=== PATIENT | female | born 1970 | race Caucasian/White ===

== ENCOUNTER 2020-04-26 09:29 | Outpatient (CLI) | payer BC, SELFPAY ==
--- NOTE | ~2020-04-26 | MM_ITS ---
EXAMINATION: MM screening [facility] BI w yessica HISTORY: Screening mammogram TECHNIQUE: Craniocaudal and mediolateral oblique 3-D tomosynthesis images were obtained and synthetic 2-D images were generated. CAD analysis was submitted and interpreted. COMPARISON: 03/02/2019, 02/24/2018, 09/09/2016 BREAST PARENCHYMAL COMPOSITION: There are scattered areas of fibroglandular density. FINDINGS: Masses of the central right breast demonstrates slight decrease in size, consistent with be nign findings. There is no evidence of suspicious mass, calcification, or architectural distortion to suggest malignancy in either breast. There has been no suspicious interval change. IMPRESSION: 1. No mammographic evidence of malignancy. 2. Recommend routine screening mammography in one year. BI-RADS Category 2: Benign finding(s). Reviewed, dictated and finalized at location A.
== END 2020-04-26 09:30 | disposition home or self-care (01) ==
LOC: ANHIMG 09:32
PROVIDERS: PCP Family Medicine Adolescent Medicine; Visit Provider Obstetrics & Gynecology
DX: Z12.31 Encounter for screening mammogram for malignant neoplasm of breast (principal)
CPT/HCPCS: 77063; 77067

== ENCOUNTER 2021-07-11 09:57 | Outpatient (CLI) | payer BC, SELFPAY ==
--- NOTE | ~2021-07-11 | MM_ITS ---
EXAMINATION: MM screening [facility] BI w yessica HISTORY: Screening TECHNIQUE: Craniocaudal and mediolateral oblique 3-D tomosynthesis images were obtained and synthetic 2-D images were generated. CAD analysis was submitted and interpreted. COMPARISON: No prior mammogram is available for comparison at this institution. BREAST PARENCHYMAL COMPOSITION: The breasts are heterogeneously dense, which may obscure small masses . FINDINGS: There are developing asymmetries/masses in the central aspect of the right breast, middle t hird. There is no evidence of suspicious mass, calcification, or architectural distortion to suggest malignancy in either breast. There has been no suspicious interval change. IMPRESSION: 1. Developing right breast asymmetries/masses. 2. Additional mammographic views and possible breast ultrasound are recommended. BI-RADS Category 0: Incomplete: Needs additional imaging evaluation. Reviewed, dictated and finalized at location A. IMPRESSION: 1. Developing right breast asymmetries/masses. 2. Additional mammographic views and possible breast ultrasound are recommended . BI-RADS Category 0: Incomplete: Needs additional imaging evaluation.
== END 2021-07-11 09:58 | disposition home or self-care (01) ==
LOC: ANHIMG 09:59
PROVIDERS: PCP Family Medicine Adolescent Medicine; Visit Provider Obstetrics & Gynecology
DX: Z12.31 Encounter for screening mammogram for malignant neoplasm of breast (principal); R92.8 Other abnormal and inconclusive findings on diagnostic imaging of breast
CPT/HCPCS: 77063; 77067

== ENCOUNTER 2021-08-01 12:44 | Outpatient (CLI) | payer BC, SELFPAY ==
--- NOTE | ~2021-08-01 | MMUS_ITS ---
EXAMINATION: MM diagnostic [facility] RT w yessica, US breast RT complete HISTORY: Developing asymmetry/mass in central right breast, middle third, reported on 07/11/2021 [facility] mammogram TECHNIQUE: Additional 3-D tomosynthesis images of the right breast were performed and synthetic 2-D i mages were generated. CAD analysis was submitted and interpreted. High resolution complete right thierry st ultrasound including all 4 quadrants and subareolar area was performed. COMPARISON: 07/11/2021 bilateral digital screening mammogram FINDINGS: MAMMOGRAPHIC FINDINGS: An approximately 1 cm irregular asymmetric mass is noted at mid depth of the upper inner quadrant of the right breast. Sonographic correlation was performed. 2. Biopsy markers are noted; history of prior benign right breast biopsies. There are scattered benign calcifications. ULTRASOUND: 1:00 3 cm from nipple: A nonspecific irregular hypoechoic up to approximately mm area is noted. Ultra sound-guided aspiration attempt is recommended, with biopsy if this does not resolve with aspiration No other significant sonographic finding of the right breast is noted. IMPRESSION: 1. Irregular hypoechoic nonspecific lesion at 1:00 3 cm from nipple 2. Ultrasound-guided aspiration attempt is recommended, with biopsy to follow immediately if this veliz s not successfully resolve with aspiration BI-RADS category 4, suspicious findings. Dr. Stewart telephoned Dr. Mack's office and gave Carri the report and ultrasound guided aspiration and if necessary biopsy report on 08/01/2021 at 1505 hours. Reviewed, dictated and finalized at location A. IMPRESSION: 1. Irregular hypoechoic nonspecific lesion at 1:00 3 cm from nipple 2. Ultrasound-guided aspiration attempt is recommended, with biopsy to follow i mmediately if this does not successfully resolve with aspiration BI-RADS category 4, suspicious findings. Dr. Stewart telephoned Dr. Mack's office and gave Carri the report and ultras ound guided aspiration and if necessary biopsy report on 08/01/2021 at 1505 [place] [address].
== END 2021-08-01 12:45 | disposition home or self-care (01) ==
LOC: ANHIMG 12:45
PROVIDERS: PCP Family Medicine Adolescent Medicine; Visit Provider Obstetrics & Gynecology
DX: R92.8 Other abnormal and inconclusive findings on diagnostic imaging of breast (principal)
CPT/HCPCS: 76641; 77061; 77065; G0279

== ENCOUNTER 2022-06-29 14:11 | Emergency (ER) | payer BC, SELFPAY ==
[2022-06-29] VITALS (12 sets, daily range): BP systolic 110–145; BP diastolic 62–87; PULSE 77–99; RESP 9–16; TEMP 36.9; O2SAT 95–99
--- NOTE | ~2022-06-29 | XR_ITS ---
EXAMINATION: XR chest 2V Exam Date/Time: 06/29/2022 14:30 CDT HISTORY: CP/HEAVINESS. NEW MED STARTED 1 WK AGO,NOT SURE IF RELATED Comparison: 01/21/2019. RESULT: Lines, tubes, and devices: None. Lungs and pleura: Diffuse reticulonodular pattern, somewhat decreased since the prior study. Cardiomediastinal silhouette: Stable. Other: No acute osseous or upper abdominal finding. IMPRESSION: Pulmonary opacities may represent bronchiolitis, as can be seen with atypical infection, asthma, aspi ration, and small airways disease. Reviewed, dictated and finalized at location K. IMPRESSION: Pulmonary opacities may represent bronchiolitis, as can be seen with atypical i nfection, asthma, aspiration, and small airways disease.
--- NOTE | 2022-06-29 14:12 | ECG_ITS ---
Measurements Intervals [place] Rate: 77 P: 22 CA: 165 QRS: 60 QRSD: 90 T: 11 QT: 385 QTc: 436 Interpretive Statements SINUS RHYTHM DELAYED PRECORDIAL R/S TRANSITION LOW QRS VOLTAGE IN PRECORDIAL LEADS BORDERLINE T WAVE ABNORMALITY- INFERIOR LEADS BASELINE ARTIFACT- V6 BORDERLINE ECG NO PREVIOUS ECG AVAILABLE FOR COMPARISON Electronically Signed On 06-29-2022 21:45:26 CDT by Phoenix Holguin D.O.
--- NOTE | 2022-06-29 14:19 | ED.CHESTPAIN ---
HPI - Chest Pain General Chief Complaint: Chest Pain Stated Complaint: chest pain, heaviness Time Seen by Provider: 06/29/22 14:19 History of Present Illness HPI narrative: Patient is a 51-year-old female with a history of rheumatoid arthritis, fibromyalgia, hypothyroidism, GERD presenting with chest pain. Patient states that she recently started low-dose naltrexone for her RA. Since this time, she has had intermittent chest pain and heaviness. States that it feels heavy around at the bottom of her rib cage. Denies shortness of breath or palpitations. Reports some lightheadedness whenever she stands up too quickly. She denies leg swelling, fevers, cough, abdominal, nausea or vomiting, diarrhea, dysuria. Patient states that her boyfriend was recently diagnosed with bladder cancer and she has been feeling very stressed from this as well. Related Data Home Medications Medication Instructions Recorded Confirmed folic acid 1 mg tablet 1 mg PO DAILY 01/22/22 05/13/22 omeprazole 40 mg capsule,delayed 40 mg PO DAILY 01/22/22 05/13/22 release methotrexate (PF) 10 mg/0.4 mL 10 mg subcut WEEKLY 01/23/22 05/13/22 subcutaneous syringe prednisone 5 mg tablet 5 mg PO DAILY 01/23/22 05/13/22 Allergies Allergy/AdvReac Type Severity Reaction Status Date / Time aspirin Allergy Unknown unknown Verified 06/29/22 15:08 Penicillins Allergy Unknown Unknown Verified 06/29/22 15:08 Sulfa (Sulfonamide Allergy Unknown Rash Verified 06/29/22 15:08 Antibiotics) Review of Systems Review of Systems: All systems reviewed & are unremarkable except as noted in HPI and below PMFSH Surgical History Surgical History History of section History of endometrial ablation History of tonsillectomy Family History Family History Father Hypertension Diabetes mellitus Thyroid cancer Depression Grandparent Cerebrovascular accident Other Family history of allergic disorder Social History Social History Smoking status: Never smoker Second hand tobacco smoke exposure: No Alcohol intake: current Alcohol use details: Rarely Substance use: never Substance use type: does not use Gender identity (if verbalized by the patient): Female Sexual Orientation (if Verbalized by the Patient): Straight or Heterosexual Spiritual care concerns: No Agree to blood products: Yes Exam Narrative: GENERAL: Well-appearing, well-nourished, and in no acute distress. HEAD: Normocephalic, atraumatic. EYES: PERRLA and EOMI. ENT: Nares clear, no rhinorrhea or epistaxis. Mucous membranes moist. NECK: Supple. CHEST: Clear to auscultation. No respiratory distress. HEART: Regular rate and rhythm. No murmur heard. Normal peripheral pulses. ABDOMEN: Soft, nontender, nondistended, normal active bowel sounds. EXTREMITIES: Normal range of motion. No edema. SKIN: Warm, dry, no rash. NEURO: No focal deficits. Alert and oriented x3. PSYCH: Normal mood and affect. Course Vital Signs Vital signs: Vital Signs Temperature 98.5 F 06/29/22 14:14 Pulse Rate 99 06/29/22 14:14 Respiratory Rate 16 06/29/22 14:14 Blood Pressure 145/87 H 06/29/22 14:14 Pulse Oximetry 99 06/29/22 14:14 Oxygen Delivery Room Air 06/29/22 14:14 Temperature 98.5 F 06/29/22 14:14 Pulse Rate 79 06/29/22 18:20 Respiratory Rate 16 06/29/22 18:20 Blood Pressure 120/79 06/29/22 18:20 Pulse Oximetry 95 06/29/22 18:20 Oxygen Delivery Room Air 06/29/22 15:05 MDM - Chest Pain MDM Narrative Medical decision making narrative: Patient is a 51-year-old female with history as above presenting with 1 week of intermittent chest pain. Vitals within normal limits. Patient is well-appearing and in no acute distress. Exam is remarkable for the above. EKG per my int
[2022-06-29 14:51] LABS: Basophils Absolute Auto 0.1 K/mm3 (0.0-0.1); Basophils Percent Auto 0.5 % (0.2-1.2); Eosinophils Percent Auto 0.4 % (0-4.4); Hematocrit 36.8 % (37.0-47.0); Hemoglobin 12.4 g/dL (12.0-15.0); Immature Granulocyte Absolute 0.03 K/mm3 (0.00-0.031); Immature Granulocyte Percent A 0.3 % (0-0.5); Lymphocytes Absolute Auto 3.22 K/mm3 (0.9-3.2); Lymphocytes Percent Auto 29.2 % (18.3-44.2); Mean Corpuscular HGB Conc 33.7 g/dl (32-36); Mean Corpuscular Hemoglobin 32.5 pg (26-34); Mean Corpuscular Volume 96.3 fl (80-100); Mean Platelet Volume 9.5 fl (7.4-10.4); Monocytes Absolute Auto 0.9 K/mm3 (0.1-0.6); Monocytes Percent Auto 8.4 % (2.6-8.5); Neutrophils Absolute Auto 6.8 K/mm3 (1.3-6.7); Neutrophils Percent Auto 61.2 % (45.5-73.1); Platelet Count Result 322 k/mm3 (150-375); Red Blood Count 3.82 M/mm3 (4.2-5.4); Red Cell Distribution Width 13.5 % (11.5-14.5)
[2022-06-29 15:01] LABS: INR 0.9
[2022-06-29 15:02] LABS: Partial Thromboplastin Time 24.5 SECONDS (22.3-36.8)
[2022-06-29 15:03] LABS: Alanine Aminotransferase 30 U/L (6-35); Albumin Level 4.5 g/dL (3.5-5.1); Alkaline Phosphatase 51 U/L (38-126); Anion Gap 11 mmol/L (8-16); Aspartate Amino Transferase 25 U/L (14-36); Bilirubin,Total 0.2 mg/dL (0.2-1.3); Blood Urea Nitrogen 16 mg/dL (7-17); Calcium 8.7 mg/dL (8.4-10.2); Carbon Dioxide 25 mmol/L (22-30); Chloride 102 mmol/L (98-107); Estimated CRCL calculation 104 ml/min; Estimated Glomerular Filt Rate > 60; Glucose 134 mg/dL (65-110); Lipase 91 U/L (23-300); Potassium 3.3 mmol/L (3.4-5.0); Sodium 138 mmol/L (137-145)
[2022-06-29 15:14] LABS: Troponin I < 0.012 ng/mL (0.000-0.034)
[2022-06-29] MEDS: POTASSIUM CHLORIDE 20 MEQ TABLET 40 MEQ PO (17:40)
[2022-06-29 17:49] LABS: Troponin I < 0.012 ng/mL (0.000-0.034)
== END 2022-06-29 18:22 | disposition home or self-care (01) ==
PROVIDERS: Emergency Provider Emergency Medicine; PCP Family Medicine Adolescent Medicine
DX: R07.89 Other chest pain (principal); M06.9 Rheumatoid arthritis, unspecified; M79.7 Fibromyalgia; E03.9 Hypothyroidism, unspecified; K21.9 Gastro-esophageal reflux disease without esophagitis; R94.31 Abnormal electrocardiogram [ECG] [EKG]
CPT/HCPCS: 36415; 71046; 80053; 83690; 84484; 85025; 85610; 85730; 93005; 99284; A9270

== ENCOUNTER 2022-07-12 15:30 | Emergency (ER) | payer BC, SELFPAY ==
--- NOTE | ~2022-07-12 | XR_ITS ---
EXAMINATION: XR chest 2V Exam Date/Time: 07/12/2022 17:30 CDT HISTORY: chest/lower rib pain Comparison: 06/29/2022. RESULT: Lines, tubes, and devices: None. Lungs and pleura: Stable reticulonodular opacities. Cardiomediastinal silhouette: Stable. Other: No acute osseous or upper abdominal finding. IMPRESSION: Unchanged chronic pulmonary opacities likely representing bronchiolitis. Reviewed, dictated and finalized at location K.
--- NOTE | ~2022-07-12 | CT_ITS ---
EXAMINATION: CT abdomen pelvis w con DATE: 07/12/2022 19:37 INDICATION: epigastruc/RUQ pain, lower chest wall pain TECHNIQUE: Computed tomography (CT) of the abdomen and pelvis was performed with 100 mL Omnipaque-350 intravenous contrast. Automated exposure control and iterative reconstruction technique were employe d. The dose-length product was 1373.41 mGy-cm. COMPARISON: None. FINDINGS: Lower thorax: Unremarkable Liver: Fatty infiltrated. Enlarged. Subcentimeter right lobe hypodensity, too small to characterize. Biliary/Gallbladder: Gallbladder is normal. No bile duct dilation. Pancreas: No mass or duct dilation. Spleen: Normal. Adrenals:No mass. Kidneys: Left lower pole hypodensity, too small to characterize. No suspicious mass. No hydronephrosi s. GI tract: No small or large bowel dilation. Normal appendix. Mesentery/Peritoneum: No ascites, mass, or free air. Retroperitoneum: No mass. Pelvis: Serpiginous, fluid-filled structures in the bilateral adnexa. Multiple small simple bilateral ovarian cysts and/or follicles. Remaining pelvic are within normal limits. Soft Tissues: Soft tissues and body wall unremarkable. Bones: No acute osseous finding. IMPRESSION: Hepatomegaly. Steatosis. Bilateral hydrosalpinx. Reviewed, dictated and finalized at location K.
[2022-07-12 15:34] VITALS: BP 142/91; PULSE 89; RESP 14; TEMP 36.7; O2SAT 98
--- NOTE | 2022-07-12 16:56 | ECG_ITS ---
Measurements Intervals [place] Rate: 65 P: 39 IA: 150 QRS: 5 QRSD: 100 T: 44 QT: 404 QTc: 422 Interpretive Statements SINUS RHYTHM LOW QRS VOLTAGE IN PRECORDIAL LEADS NO SIGNIFICANT CHANGES Electronically Signed On 07-13-2022 17:38:21 CDT by Felicitas Darnell M.D.
--- NOTE | 2022-07-12 16:56 | ED.GENADULT ---
HPI - General Adult General Chief complaint: Unspecified <LONA Bowers Last Filed: 07/12/22 21:18> Stated complaint: Epigastric pain, that radiates <LONA Bowers Last Filed: 07/12/22 21:18> Time Seen by Provider: 07/12/22 16:54 <LONA Bowers Last Filed: 07/12/22 21:18> Source: patient and old records reviewed <LONA Bowers Last Filed: 07/12/22 21:18> Mode of arrival: ambulatory <LONA Bowers Filed: 07/12/22 21:18> Limitations: no limitations <LONA Bowers Filed: 07/12/22 21:18> History of Present Illness HPI narrative: Patient is a 51 y/o female, with a PMHx of RA/fibromyalgia, who presents to the ED with c/o lower chest, upper abdominal pain. Patient reports she was previously seen in the ED 2 weeks ago for chest pain at which point she had a negative work-up. She has had persistent pain in her lower chest, along her ribs, since then. She states the pain intermittently radiates throughout her lower abdomen and up to her upper chest. She has been taking ibuprofen and Tylenol intermittently without relief. Her shade maker has previously put her on a Medrol Dosepak but she denies relief with this either. Patient reports difficulty taking a deep breath, feeling as though her chest is restricted, but denies pain with taking deep breath or shortness of breath. Denies any recent cough or cold symptoms. Occasional nausea, but denies vomiting, diarrhea, constipation. <LONA Bowers Last Filed: 07/12/22 21:18> Related Data Home medications: Home Medications Medication Instructions Recorded Confirmed folic acid 1 mg tablet 1 mg PO DAILY 01/22/22 05/13/22 omeprazole 40 mg capsule,delayed 40 mg PO DAILY 01/22/22 05/13/22 release methotrexate (PF) 10 mg/0.4 mL 10 mg subcut WEEKLY 01/23/22 05/13/22 subcutaneous syringe prednisone 5 mg tablet 5 mg PO DAILY 01/23/22 05/13/22 <Kathrin Starkey PA-C - Last Filed: 07/12/22 21:18> Allergies/adverse reactions: Allergies Allergy/AdvReac Type Severity Reaction Status Date / Time danni moreno Allergy Intermediate Itching Verified 07/12/22 15:56 benzyl alcohol Allergy Intermediate Itching Verified 07/12/22 15:56 aspirin Allergy Unknown unknown Verified 07/12/22 15:56 Penicillins Allergy Unknown Unknown Verified 07/12/22 15:56 Sulfa (Sulfonamide Allergy Unknown Rash Verified 07/12/22 15:56 Antibiotics) <Kathrin Starkey PA-C - Last Filed: 07/12/22 21:18> Review of Systems Review of Systems: CONSTITUTIONAL: Denies fever, chills, or sweats. ENT: Denies rhinorrhea, congestion, sore throat. CARDIOVASCULAR: Reports lower chest wall/rib pain. Denies palpitations, or edema. RESPIRATORY: Reports difficulty taking deep breath. Denies pain with deep breath, cough, or dyspnea. GASTROINTESTINAL: Reports nausea. Denies abdominal pain, vomiting, constipation, or diarrhea. MUSCULOSKELETAL: Denies back pain, joint pain, or myalgia. <Kathrin Starkey PA-C - Last Filed: 07/12/22 21:18> [facility] Past Medical History Medical History: Medical History Abnormal Pap smear of cervix 04/07/16 ascus neg hpv Dizziness Fibromyalgia Infertility adopted girl Left breast mass Parathyroid disease Viral meningitis (~05/27/18) <Kathrin Starkey PA-C - Last Filed: 07/12/22 21:18> Surgical History Surgical History: Surgical History H/O right breast biopsy (09/03/21) right breast core biopsy Benign History of breast biopsy 06/12/12 right breast--benign History of section 06/12/03 primary c/s--41 wks, arrest of dilation, occiput posterior position, lt paratubal cyst History of dilation and curettage 200602/15/15 hscope d&c--menometrorrhagia/dysmenorrhea History of endomet
[2022-07-12 17:52] LABS: Alanine Aminotransferase 28 U/L (6-35); Albumin Level 4.4 g/dL (3.5-5.1); Alkaline Phosphatase 48 U/L (38-126); Anion Gap 8 mmol/L (8-16); Aspartate Amino Transferase 28 U/L (14-36); Bilirubin,Total 0.4 mg/dL (0.2-1.3); Blood Urea Nitrogen 14 mg/dL (7-17); Calcium 8.4 mg/dL (8.4-10.2); Carbon Dioxide 28 mmol/L (22-30); Chloride 100 mmol/L (98-107); Estimated CRCL calculation 92 ml/min; Estimated Glomerular Filt Rate > 60; Glucose 97 mg/dL (65-110); Lipase 121 U/L (23-300); Potassium 3.5 mmol/L (3.4-5.0); Sodium 136 mmol/L (137-145)
[2022-07-12 17:53] LABS: Basophils Percent Auto 0.3 % (0.2-1.2); Eosinophils Percent Auto 0.2 % (0-4.4); Hematocrit 38.2 % (37.0-47.0); Hemoglobin 12.7 g/dL (12.0-15.0); Immature Granulocyte Absolute 0.04 K/mm3 (0.00-0.031); Immature Granulocyte Percent A 0.3 % (0-0.5); Lymphocytes Absolute Auto 2.92 K/mm3 (0.9-3.2); Lymphocytes Percent Auto 23.6 % (18.3-44.2); Mean Corpuscular HGB Conc 33.2 g/dl (32-36); Mean Corpuscular Hemoglobin 32.8 pg (26-34); Mean Corpuscular Volume 98.7 fl (80-100); Mean Platelet Volume 9.7 fl (7.4-10.4); Monocytes Absolute Auto 1.1 K/mm3 (0.1-0.6); Monocytes Percent Auto 8.9 % (2.6-8.5); Neutrophils Absolute Auto 8.2 K/mm3 (1.3-6.7); Neutrophils Percent Auto 66.7 % (45.5-73.1); Platelet Count Result 340 k/mm3 (150-375); Red Blood Count 3.87 M/mm3 (4.2-5.4); Red Cell Distribution Width 13.3 % (11.5-14.5); White Blood Count 12.4 K/mm3 (4.5-10.0)
[2022-07-12 18:03] LABS: Troponin I < 0.012 ng/mL (0.000-0.034)
[2022-07-12] MEDS: KETOROLAC 30 MG/ML VIAL (*BKC) IV PUSH (18:10)
[2022-07-12 18:20] LABS: D Dimer < 0.27 ug/mL (<0.48)
--- NOTE | 2022-07-12 21:31 | ED.GENADULT ---
HPI - General Adult General Chief complaint: Unspecified Stated complaint: Epigastric pain, that radiates Time Seen by Provider: 07/12/22 16:54 Source: patient and old records reviewed Mode of arrival: ambulatory Limitations: no limitations Related Data Home Medications Medication Instructions Recorded Confirmed folic acid 1 mg tablet 1 mg PO DAILY 01/22/22 05/13/22 omeprazole 40 mg capsule,delayed 40 mg PO DAILY 01/22/22 05/13/22 release methotrexate (PF) 10 mg/0.4 mL 10 mg subcut WEEKLY 01/23/22 05/13/22 subcutaneous syringe prednisone 5 mg tablet 5 mg PO DAILY 01/23/22 05/13/22 Allergies Allergy/AdvReac Type Severity Reaction Status Date / Time balsam tiffanie Allergy Intermediate Itching Verified 07/12/22 15:56 benzyl alcohol Allergy Intermediate Itching Verified 07/12/22 15:56 aspirin Allergy Unknown unknown Verified 07/12/22 15:56 Penicillins Allergy Unknown Unknown Verified 07/12/22 15:56 Sulfa (Sulfonamide Allergy Unknown Rash Verified 07/12/22 15:56 Antibiotics) [facility] Past Medical History Medical History Abnormal Pap smear of cervix 04/07/16 ascus neg hpv Dizziness Fibromyalgia Infertility adopted girl Left breast mass Parathyroid disease Viral meningitis (~05/27/18) Surgical History Surgical History H/O right breast biopsy (09/03/21) right breast core biopsy Benign History of breast biopsy 06/12/12 right breast--benign History of section 06/12/03 primary c/s--41 wks, arrest of dilation, occiput posterior position, lt paratubal cyst History of dilation and curettage 200602/15/15 hscope d&c--menometrorrhagia/dysmenorrhea History of endometrial ablation 12/20/15 hscope d&c/endometrial ablation--menometrorrhagia/dysmenorrhea History of tonsillectomy (~1977) Family History Family History Father Hypertension Diabetes mellitus Thyroid cancer Depression Grandparent Cerebrovascular accident Alcohol problem drinking maternal grandfather Other Family history of allergic disorder Social History Social History Smoking status: Never smoker Second hand tobacco smoke exposure: No Alcohol intake: current Alcohol use details: Rarely Substance use: never Substance use type: does not use Additional living arrangements comments: Additional occupation/education comments: teacher Gender identity (if verbalized by the patient): Female Sexual Orientation (if Verbalized by the Patient): Straight or Heterosexual Spiritual care concerns: No Agree to blood products: Yes Course Vital Signs Vital signs: Vital Signs Temperature 98.0 F 07/12/22 15:34 Pulse Rate 89 07/12/22 15:34 Respiratory Rate 14 07/12/22 15:34 Blood Pressure 142/91 H 07/12/22 15:34 Pulse Oximetry 98 07/12/22 15:34 Oxygen Delivery Room Air 07/12/22 15:34 Temperature 98.0 F 07/12/22 15:34 Pulse Rate 89 07/12/22 15:34 Respiratory Rate 14 07/12/22 15:34 Blood Pressure 142/91 H 07/12/22 15:34 Pulse Oximetry 98 07/12/22 15:34 Oxygen Delivery Room Air 07/12/22 15:34 Medical Decision Making Medical Records Medical records reviewed: Yes I reviewed the external patient's medical records. Vital Signs Vital Signs: Vital Signs Temperature 98.0 F 07/12/22 15:34 Pulse Rate 89 07/12/22 15:34 Respiratory Rate 14 07/12/22 15:34 Blood Pressure 142/91 H 07/12/22 15:34 Pulse Oximetry 98 07/12/22 15:34 Oxygen Delivery Room Air 07/12/22 15:34 Temperature 98.0 F 07/12/22 15:34 Pulse Rate 89 07/12/22 15:34 Respiratory Rate 14 07/12/22 15:34 Blood Pressure 142/91 H 07/12/22 15:34 Pulse Oximetry 98 07/12/22 15:34 Oxygen Delivery Room Air 07/12/22 15:34 Lab Data L
--- NOTE | 2022-07-12 21:36 | ED.GENADULT ---
HPI - General Adult General Chief complaint: Unspecified Stated complaint: Epigastric pain, that radiates Time Seen by Provider: 07/12/22 16:54 Source: patient and old records reviewed Mode of arrival: ambulatory Limitations: no limitations Related Data Home Medications Medication Instructions Recorded Confirmed folic acid 1 mg tablet 1 mg PO DAILY 01/22/22 05/13/22 omeprazole 40 mg capsule,delayed 40 mg PO DAILY 01/22/22 05/13/22 release methotrexate (PF) 10 mg/0.4 mL 10 mg subcut WEEKLY 01/23/22 05/13/22 subcutaneous syringe prednisone 5 mg tablet 5 mg PO DAILY 01/23/22 05/13/22 Allergies Allergy/AdvReac Type Severity Reaction Status Date / Time balsam tiffanie Allergy Intermediate Itching Verified 07/12/22 15:56 benzyl alcohol Allergy Intermediate Itching Verified 07/12/22 15:56 aspirin Allergy Unknown unknown Verified 07/12/22 15:56 Penicillins Allergy Unknown Unknown Verified 07/12/22 15:56 Sulfa (Sulfonamide Allergy Unknown Rash Verified 07/12/22 15:56 Antibiotics) [facility] Past Medical History Medical History Abnormal Pap smear of cervix 04/07/16 ascus neg hpv Dizziness Fibromyalgia Infertility adopted girl Left breast mass Parathyroid disease Viral meningitis (~05/27/18) Surgical History Surgical History H/O right breast biopsy (09/03/21) right breast core biopsy Benign History of breast biopsy 06/12/12 right breast--benign History of section 06/12/03 primary c/s--41 wks, arrest of dilation, occiput posterior position, lt paratubal cyst History of dilation and curettage 200602/15/15 hscope d&c--menometrorrhagia/dysmenorrhea History of endometrial ablation 12/20/15 hscope d&c/endometrial ablation--menometrorrhagia/dysmenorrhea History of tonsillectomy (~1977) Family History Family History Father Hypertension Diabetes mellitus Thyroid cancer Depression Grandparent Cerebrovascular accident Alcohol problem drinking maternal grandfather Other Family history of allergic disorder Social History Social History Smoking status: Never smoker Second hand tobacco smoke exposure: No Alcohol intake: current Alcohol use details: Rarely Substance use: never Substance use type: does not use Additional living arrangements comments: Additional occupation/education comments: teacher Gender identity (if verbalized by the patient): Female Sexual Orientation (if Verbalized by the Patient): Straight or Heterosexual Spiritual care concerns: No Agree to blood products: Yes Course Vital Signs Vital signs: Vital Signs Temperature 98.0 F 07/12/22 15:34 Pulse Rate 89 07/12/22 15:34 Respiratory Rate 14 07/12/22 15:34 Blood Pressure 142/91 H 07/12/22 15:34 Pulse Oximetry 98 07/12/22 15:34 Oxygen Delivery Room Air 07/12/22 15:34 Temperature 98.0 F 07/12/22 15:34 Pulse Rate 89 07/12/22 15:34 Respiratory Rate 14 07/12/22 15:34 Blood Pressure 142/91 H 07/12/22 15:34 Pulse Oximetry 98 07/12/22 15:34 Oxygen Delivery Room Air 07/12/22 15:34 Medical Decision Making Vital Signs Vital Signs: Vital Signs Temperature 98.0 F 07/12/22 15:34 Pulse Rate 89 07/12/22 15:34 Respiratory Rate 14 07/12/22 15:34 Blood Pressure 142/91 H 07/12/22 15:34 Pulse Oximetry 98 07/12/22 15:34 Oxygen Delivery Room Air 07/12/22 15:34 Temperature 98.0 F 07/12/22 15:34 Pulse Rate 89 07/12/22 15:34 Respiratory Rate 14 07/12/22 15:34 Blood Pressure 142/91 H 07/12/22 15:34 Pulse Oximetry 98 07/12/22 15:34 Oxygen Delivery Room Air 07/12/22 15:34 Lab Data Result diagrams: 07/12/22 17:33 07/12/22 17:33 Labs: Lab Results
== END 2022-07-12 22:00 | disposition home or self-care (01) ==
PROVIDERS: Physician Assistant; Emergency Provider Emergency Medicine; PCP Family Medicine Adolescent Medicine
DX: R07.89 Other chest pain (principal); R10.13 Epigastric pain; M06.9 Rheumatoid arthritis, unspecified; M79.7 Fibromyalgia; E21.5 Disorder of parathyroid gland, unspecified
CPT/HCPCS: 36415; 71046; 74177; 80053; 81025; 83690; 84484; 85025; 85380; 93005; 96365; 96375; 99284; J0131; J1885; Q9967

== ENCOUNTER 2022-07-22 11:22 | Outpatient (CLI) | payer BC, SELFPAY ==
--- NOTE | ~2022-07-22 | MMUS_ITS ---
EXAMINATION: MM diagnostic marina BI w yessica, US breast BI complete HISTORY: Unspecified lump in the left breast TECHNIQUE: Additional 3-D tomosynthesis images of the breasts were performed and synthetic 2-D images were generated. CAD analysis was submitted and interpreted. High resolution complete bilateral breas t ultrasound was performed. COMPARISON: Comparison to multiple prior studies sequentially, with oldest reviewed study dated 08/13. BREAST PARENCHYMAL COMPOSITION: The breasts are heterogeneously dense, which may obscure small masses FINDINGS: MAMMOGRAPHIC FINDINGS: The left breast is stable without evidence for malignancy. There are right breast masses which are un changed from prior examinations allowing for differences of technique. There is tissue marker and the largest mass located in the upper inner quadrant. No new masses, calcifications or architectural dis tortion in either breast to suggest malignancy. ULTRASOUND: Complete bilateral US of all 4 quadrants of the breasts and retroareolar region was reviewed. Right breast:At 10:00, 15 cm from the nipple, there is a 4 mm cyst. At 1:00, 10 cm from the nipple, t here is an oval hypoechoic mass with internal echoes measuring 9 x 9 x 7 mm. This likely corresponds to a mass seen on mammography which was previously biopsy proven benign. Left breast: At 12:00, 10 cm from the nipple there is a 4 mm cyst. At 1:00, 15 cm from the nipple the re is an oval hypoechoic mass without internal vascularity, no posterior features and parallel orient ation measuring 8 x 4 x 4 mm. At 6:00, 10 cm from the nipple there is a 5 mm minimally complicated cy sts. IMPRESSION: 1. Probable benign bilateral breast masses. 2. Recommend 6 month follow-up diagnostic bilateral mammogram and limited ultrasound. BI-RADS category 3, probably benign findings. Reviewed, dictated and finalized at location A. IMPRESSION: 1. Probable benign bilateral breast masses. 2. Recommend 6 month follow-up diagnostic bilateral mammogram and limited ultra sound. BI-RADS category 3, probably benign findings.
== END 2022-07-22 11:23 | disposition home or self-care (01) ==
PROVIDERS: PCP Family Medicine Adolescent Medicine; Visit Provider Obstetrics & Gynecology
DX: N63.20 Unspecified lump in the left breast, unspecified quadrant (principal); R92.8 Other abnormal and inconclusive findings on diagnostic imaging of breast
CPT/HCPCS: 76641; 77062; 77066; G0279

== ENCOUNTER 2022-10-10 02:05 | Day surgery (SDC) | payer BC, SELFPAY ==
[2022-09-29 12:50] VITALS: BMI 38.8
[2022-10-10 09:12] VITALS: BP 147/79; PULSE 98; RESP 18; O2SAT 97; BMI 38.4
--- NOTE | 2022-10-10 09:17 | PM.HPGS ---
History of Present Illness History of Present Illness Consent: Risks, benefits, and alternatives have been discussed and questions answered. Patient agrees to proceed with procedure. Chief complaint: abd pain &distension, GERD,nausea; neoplasm screen Narrative: Bebe Connelly is a 51 year old female Presents for colonoscopy in EGD. Patient desires neoplasia screening because of her age. Current weight appetite bowel movements are normal. Patient has had some upper abdominal discomfort bloating. She states she has rheumatoid arthritis and frequently takes ibuprofen. Upon discontinuing this medications symptoms have improved dramatically. Patient has also been on a trial of omeprazole 40mg p.o. b.i.d.. An EGD and colonoscopy are requested at this time. Review of Systems Review of Systems: Review of systems noncontributory. COUNT INCLUDES THE [facility] Past Medical History Medical History Abnormal Pap smear of cervix 04/07/16 ascus neg hpv Benign breast cyst in female Bloating Colon cancer screening Dizziness Fibromyalgia Fibromyalgia GERD (gastroesophageal reflux disease) Infertility adopted girl Left breast mass Nausea Obesity (BMI 30-39.9) Parathyroid disease Rheumatoid arthritis Upper abdominal pain Viral meningitis (~05/27/18) Surgical History Surgical History H/O right breast biopsy (09/03/21) right breast core biopsy Benign History of breast biopsy 06/12/12 right breast--benign History of section 06/12/03 primary c/s--41 wks, arrest of dilation, occiput posterior position, lt paratubal cyst History of dilation and curettage 200602/15/15 hscope d&c--menometrorrhagia/dysmenorrhea History of endometrial ablation 12/20/15 hscope d&c/endometrial ablation--menometrorrhagia/dysmenorrhea History of tonsillectomy (~1977) Family History Family History Father Hypertension Diabetes mellitus Thyroid cancer Depression Grandparent Cerebrovascular accident Alcohol problem drinking maternal grandfather Other Family history of allergic disorder Social History Social History Smoking status: Never smoker Second hand tobacco smoke exposure: No Alcohol intake: current Alcohol use details: Rarely Substance use: never Substance use type: does not use Living arrangements: with family Additional living arrangements comments: Additional occupation/education comments: teacher Gender identity (if verbalized by the patient): Female Sexual Orientation (if Verbalized by the Patient): Straight or Heterosexual Spiritual care concerns: No Agree to blood products: Yes Meds Home Medications and Allergies Home Medications Medication Instructions Recorded Confirmed Type folic acid 1 mg tablet 1 mg PO DAILY 01/22/22 09/29/22 History methotrexate (PF) 10 mg/0.4 mL 10 mg subcut WEEKLY 01/23/22 09/29/22 History subcutaneous syringe lisinopril 20 mg tablet 20 mg PO DAILY #90 tabs 02/21/22 09/29/22 Rx gabapentin 300 mg capsule 300 mg PO TID #90 caps 02/25/22 09/29/22 Rx ondansetron 4 mg disintegrating 4 mg PO Q8H PRN nausea and 05/13/22 09/29/22 Rx tablet vomiting #20 tabs hydrochlorothiazide 25 mg tablet 25 mg PO DAILY #90 tabs 06/02/22 09/29/22 Rx levothyroxine 88 mcg capsule 88 mcg PO DAILY #90 caps 07/22/22 09/29/22 Rx (Tirosint) omeprazole 40 mg capsule,delayed 40 mg PO BID #60 caps 08/28/22 09/29/22 Rx release prednisone 10 mg tablet See Rx Instructions PO DAILY #40 09/08/22 09/29/22 Rx tabs fluoxetine 20 mg capsule 20 mg PO DAILY #90 caps 10/07/22 10/10/22 Rx Allergies Allergy/AdvReac Type Severity Reaction Status Date / Time danni tiffanie Allergy Intermediate Itching Verified 10/10/22 09:11 benzyl alcohol Allergy Intermediate Itchin
[2022-10-10] MEDS: LACTATED RINGERS 1,000 ML 150 ML IV CONT (09:21)
--- NOTE | 2022-10-10 09:26 | WPDANESEPPF ---
Anes - Initial Pre Proc Eval Procedure: Operation Date: 10/10/22 10:15 Proposed Procedures p Esophagogastroduodenoscopy & Screening Colonoscopy - Erwin Braden MD Date/Time: 10/10/22 09:26 Surgeon: Erwin Braden MD Pre Op Diagnosis: abd pain &distension, GERD,nausea; neoplasm screen Patient Data Age: 51 Gender: F Height: 1.68 m Weight: 107.9 kg Last Vital Signs Pulse 98 10/10/22 09:12 Resp 18 10/10/22 09:12 BP 147/79 H 10/10/22 09:12 Pulse Ox 97 10/10/22 09:12 O2 Del Method Room Air 10/10/22 09:12 Allergies Allergy/AdvReac Type Severity Reaction Status Date / Time balsam tiffanie Allergy Intermediate Itching Verified 10/10/22 09:11 benzyl alcohol Allergy Intermediate Itching Verified 10/10/22 09:11 aspirin Allergy Unknown unknown Verified 10/10/22 09:11 Penicillins Allergy Unknown Unknown Verified 10/10/22 09:11 Sulfa (Sulfonamide Allergy Unknown Rash Verified 10/10/22 09:11 Antibiotics) oxymetazoline AdvReac Intermediate Swelling Verified 10/10/22 09:11 [From Afrin (oxymetazoline)] Home Medications Medication Instructions Recorded Confirmed Type folic acid 1 mg tablet 1 mg PO DAILY 01/22/22 09/29/22 History methotrexate (PF) 10 mg/0.4 mL 10 mg subcut WEEKLY 01/23/22 09/29/22 History subcutaneous syringe lisinopril 20 mg tablet 20 mg PO DAILY #90 tabs 02/21/22 09/29/22 Rx gabapentin 300 mg capsule 300 mg PO TID #90 caps 02/25/22 09/29/22 Rx ondansetron 4 mg disintegrating 4 mg PO Q8H PRN nausea and 05/13/22 09/29/22 Rx tablet vomiting #20 tabs hydrochlorothiazide 25 mg tablet 25 mg PO DAILY #90 tabs 06/02/22 09/29/22 Rx levothyroxine 88 mcg capsule 88 mcg PO DAILY #90 caps 07/22/22 09/29/22 Rx (Tirosint) omeprazole 40 mg capsule,delayed 40 mg PO BID #60 caps 08/28/22 09/29/22 Rx release prednisone 10 mg tablet See Rx Instructions PO DAILY #40 09/08/22 09/29/22 Rx tabs fluoxetine 20 mg capsule 20 mg PO DAILY #90 caps 10/07/22 10/10/22 Rx Patient hx anesthesia problems: none Family hx anesthesia problems: none Results Review: All pre-operative results and documents have been reviewed as part of the pre-operative evaluation. [facility] Past Medical History Medical History Abnormal Pap smear of cervix 04/07/16 ascus neg hpv Benign breast cyst in female Bloating Colon cancer screening Dizziness Fibromyalgia Fibromyalgia GERD (gastroesophageal reflux disease) Infertility adopted girl Left breast mass Nausea Obesity (BMI 30-39.9) Parathyroid disease Rheumatoid arthritis Upper abdominal pain Viral meningitis (~05/27/18) Surgical History Surgical History H/O right breast biopsy (09/03/21) right breast core biopsy Benign History of breast biopsy 06/12/12 right breast--benign History of section 06/12/03 primary c/s--41 wks, arrest of dilation, occiput posterior position, lt paratubal cyst History of dilation and curettage 200602/15/15 hscope d&c--menometrorrhagia/dysmenorrhea History of endometrial ablation 12/20/15 hscope d&c/endometrial ablation--menometrorrhagia/dysmenorrhea History of tonsillectomy (~1977) Family History Family History Father Hypertension Diabetes mellitus Thyroid cancer Depression Grandparent Cerebrovascular accident Alcohol problem drinking maternal grandfather Other Family history of allergic disorder Social History Social History Smoking status: Never smoker Second hand tobacco smoke exposure: No Alcohol intake: current Alcohol use details: Rarely Substance use: never Substance use type: does not use Living arrangements: with family Additional living arrangements comments: Additional occupation/education comments: teacher Gender identity
--- NOTE | 2022-10-10 11:00 | SUR.OPER ---
EGD end 105 COLONOSCOPY START 105
[2022-10-10 11:18] VITALS: BP 116/77; PULSE 86; RESP 23; O2SAT 98
[2022-10-10 11:28] VITALS: BP 106/61; PULSE 88; RESP 19; O2SAT 98
[2022-10-10 11:38] VITALS: BP 113/69; PULSE 86; RESP 20; O2SAT 97
== END 2022-10-10 11:48 | disposition home or self-care (01) ==
PROVIDERS: PCP Family Medicine Adolescent Medicine; Visit Provider Internal Medicine Gastroenterology
PROC: 0DJ08ZZ Inspection of Upper Intestinal Tract, Via Natural or Artificial Opening Endoscopic (ICD-10-PCS; CPT 43235; principal; 2022-10-10 10:15)
DX: Z12.11 Encounter for screening for malignant neoplasm of colon (principal); K64.8 Other hemorrhoids; K30 Functional dyspepsia; M79.7 Fibromyalgia; M06.9 Rheumatoid arthritis, unspecified; K21.9 Gastro-esophageal reflux disease without esophagitis; E66.9 Obesity, unspecified; Z68.38 Body mass index [BMI] 38.0-38.9, adult; Z79.1 Long term (current) use of non-steroidal anti-inflammatories (NSAID)
CPT/HCPCS: 45378; 43239; 87081; J2704; J7120

== ENCOUNTER 2023-01-21 11:11 | Outpatient (CLI) | payer BC, SELFPAY ==
--- NOTE | ~2023-01-21 | MMUS_ITS ---
EXAMINATION: MM diagnostic marina BI w yessica, US breast BI limited HISTORY: Six-month follow-up of probable benign bilateral breast masses TECHNIQUE: ML, MLO and CC 3-D tomosynthesis images of both breasts were performed and synthetic 2-D i mages were generated. CAD analysis was submitted and interpreted. High resolution limited bilateral f ollow-up breast ultrasound was performed. COMPARISON: 07/22/2022 bilateral diagnostic mammogram and bilateral complete breast ultrasound examin ation BREAST PARENCHYMAL COMPOSITION: There are scattered areas of fibroglandular density. FINDINGS: MAMMOGRAPHIC FINDINGS: Biopsy markers noted on the right, including one in a stable circumscribed approximately 10 mm mass i n the mid to upper inner right breast.. No interval suspicious mass, architectural distortion, malign ant calcification, skin thickening or retraction or significant new or developing density of either b reast is detected. ULTRASOUND: No significant new or developing mass of either breast is detected. IMPRESSION: 1. No mammographic evidence of malignancy 2. Routine mammographic screening is recommended. BI-RADS Category 2: Benign finding(s). Reviewed, dictated and finalized at location A. IMPRESSION: 1. No mammographic evidence of malignancy 2. Routine mammographic screening is recommended. BI-RADS Category 2: Benign finding(s).
== END 2023-01-21 11:12 | disposition home or self-care (01) ==
LOC: ANHIMG 11:13
PROVIDERS: PCP Family Medicine Adolescent Medicine; Visit Provider Obstetrics & Gynecology
DX: N60.09 Solitary cyst of unspecified breast (principal)
CPT/HCPCS: 76642; 77062; 77066; G0279

== ENCOUNTER 2024-04-01 07:38 | Outpatient (CLI) | payer BC, SELFPAY ==
--- NOTE | ~2024-04-01 | MM_ITS ---
EXAMINATION: MM screening marina BI w yessica HISTORY: Screening. Previous benign right breast biopsy. TECHNIQUE: Craniocaudal and mediolateral oblique 3-D tomosynthesis images were obtained and synthetic 2-D images were generated. CAD analysis was submitted and interpreted. COMPARISON: Comparison to multiple prior studies sequentially, with oldest reviewed study dated 03/02. BREAST PARENCHYMAL COMPOSITION: FINDINGS: There is a developing mass in the upper outer quadrant of the right breast, middle third. T here is a mass in the medial aspect of the right breast with associated tissue marker. There is a fredy rby mass which has developed in the lower inner quadrant adjacent to the tissue markers. The left giovana ast is stable without evidence for malignancy. IMPRESSION: 1. Developing right breast masses. 2. Additional mammographic views and possible breast ultrasound are recommended. BI-RADS Category 0: Incomplete: Needs additional imaging evaluation. Reviewed, dictated and finalized at location B. IMPRESSION: 1. Developing right breast masses. 2. Additional mammographic views and possible breast ultrasound are recommended . BI-RADS Category 0: Incomplete: Needs additional imaging evaluation.
== END 2024-04-01 07:39 | disposition home or self-care (01) ==
LOC: ANHIMG 07:41
PROVIDERS: PCP Family Medicine Adolescent Medicine; Visit Provider Obstetrics & Gynecology
DX: Z12.31 Encounter for screening mammogram for malignant neoplasm of breast (principal); R92.8 Other abnormal and inconclusive findings on diagnostic imaging of breast
CPT/HCPCS: 77063; 77067

== ENCOUNTER 2024-04-22 13:02 | Outpatient (CLI) | payer BC, SELFPAY ==
--- NOTE | ~2024-04-22 | MM_ITS ---
EXAMINATION: MM diagnostic marina RT w yessica HISTORY: Right breast mass TECHNIQUE: Additional 3-D tomosynthesis images of the right breast were performed and synthetic 2-D i mages were generated. CAD analysis was submitted and interpreted. COMPARISON: 04/01/2024, 01/21/2023, 07/22/2022 BREAST PARENCHYMAL COMPOSITION:Not Dense. There are scattered areas of fibroglandular density. FINDINGS: Spot compression views demonstrate several circumscribed low-density masses, which retrospe ctively in my opinion are probably stable from prior exams. Largest mass has associated biopsy clip. 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 No overtly suspici ous mass identified. No suspicious calcifications. IMPRESSION: No mammographic evidence for malignancy. BI-RADS Category 2: Benign finding(s). Reviewed, dictated and finalized at location .
== END 2024-04-22 13:03 | disposition home or self-care (01) ==
PROVIDERS: PCP Family Medicine Adolescent Medicine; Visit Provider Obstetrics & Gynecology
DX: N63.10 Unspecified lump in the right breast, unspecified quadrant (principal)
CPT/HCPCS: 77061; 77065; G0279

== ENCOUNTER 2025-07-10 08:53 | Outpatient (CLI) | payer BC, SELFPAY ==
--- OUTSIDE RECORDS SUMMARY | 2007-09-16 08:32 | XMS_ITS | Continuity of Care Document ---
Author Organization [facility] Address [address] [place] [address] [address] [place] [address] Phone Care Team Providers Care Data Collection Interviewer Name Role Phone Poornima Ward Unavailable Unavailable Procedures Procedure Date Office/outpatient Visit, Est Advance Directives Directive Yes / No Effective Date File Name No Information Encounters Encounter Description Practice Location Reason(s) For Visit Diagnoses Date Provider Providers Copied on Encounter Office/outpat ient Visit, Est [facility], [address] [place] [address] [address], [place], [place], [id number], [place] tel:[phone] SEC [facility] No Information 6-[address] Sylvia Noguera. [address] [facility] , [address], [place], [address], [place]. tel:[phone] Family History Family Member Type Diagnosis Age At Onset No Information Payers Payer name Insurance type Covered republican ID Authorsubhasha gunjan(s) [facility] CI [id number] Social History Type Description Quantity Date Captured Comments Sex Female Smoking Status No Information Chief Complaint And Reason For Visit No Information Reason For Referral Reason For Referral No Information History Of Present Illness Encounter Date Complaint History Of Prese nt Illness No Information Functional Status Date Functional Assessmen t No Information Instructions Date Instruction Additional Infor mation No Information Assessments Type Assessment Date No Information Patient Care Teams Name Effective Dates (start - stop) Status Members No Information
--- NOTE | ~2025-07-10 | MM_ITS ---
EXAMINATION: MM screening [facility] BI w yessica HISTORY: Screening TECHNIQUE: Craniocaudal and mediolateral oblique 3-D tomosynthesis images were obtained and synthetic 2-D images were generated. CAD analysis was submitted and interpreted. COMPARISON: Comparison to multiple prior studies sequentially, with oldest reviewed study dated 07/11/2021. BREAST PARENCHYMAL COMPOSITION: Not dense: There are scattered areas of fibroglandular density. FINDINGS: There is no evidence of suspicious mass, calcification, or architectural distortion to suggest malignancy in either breast. There has been no suspicious interval change. IMPRESSION: 1. No mammographic evidence of malignancy. 2. Recommend routine screening mammography in one year. BI-RADS Category 1: Negative Reviewed, dictated and finalized at location B.
--- OUTSIDE RECORDS SUMMARY | 2025-07-10 09:15 | XMS_ITS | Clinical Summary ---
Author Organization [facility] Address [address] [place] [address] Care Team Providers Care Manager Radio Name Role Phone José Miguel Salas MD Primary Care Prov ider Allergies Active Allergy Reactions Criticality Noted Date Comments Aspirin Rash Medium 05/25/2019 Benzyl Alcohol Rash High 08/06/2022 Penicillins Sulfa (Sulfonamide Antibiotics) Rash Medium 05/12 Sulfanilamide Medications acetaminophen (TYLENOL) 500 mg tablet Pain Relief Extra Strength 500 mg tablet TAKE 2 TABLETS BY ORAL ROUTE 3 TIMES A DAY NEEDED Active FLUoxetine (PROzac) 20 mg capsule fluoxetine 20 mg capsule TAKE 1 CAPSULE BY MOUTH EVERY DAY Active lisinopriL (PRINIVIL,ZESTRI L) 20 mg tablet Take 1 tablet (20 mg total) by mouth daily Active hydroCHLOROthiaz noel (HYDRODIURIL) 25 mg tablet Take 1 tablet (25 mg total) by mouth daily 022 Active cetirizine (ZyrTEC) 10 mg tablet Active omeprazole (PriLOSEC) 20 mg capsule Active levothyroxine (SYNTHROID) 88 mcg tablet levothyroxine 88 mcg tablet Active lactobacillus comb no.10 (Probiotic) 20 billion cell capsule Active cholecalciferol (VITAMIN D-3) 1,000 unit Active multivit-min/ana tona fumarate (MULTI VITAMIN ORAL) Active amitriptyline (ELAVIL) 25 mg tablet Take 1 tablet (25 mg total) by mouth nightly at bedtime 023 Active ondansetron ODT (ZOFRAN-ODT) 4 mg disintegrating tablet ondansetron 4 mg disintegrating tablet DISSOLVE 1 TABLET ON THE TONGUE EVERY 8 HOURS NEEDED FOR NAUSEA OR VOMITING Active HYDROcodone-acet aminophen (NORCO) 5-325 mg per tablet Take 1 tablet by mouth 4 (four) times a day as needed 023 Active levothyroxine sodium (TIROSINT) 88 mcg capsule Take 1 capsule (88 mcg total) by mouth daily 025 Active folic acid (FOLVITE) 1 mg tabletIndication s:Encounter for long-term (current) use of high-risk medication,Rheum atoid arthritis, involving unspecified site, unspecified whether rheumatoid factor present (HCC) Take 1 tablet (1,000 mcg total) by mouth daily 90 tablet 3 025 Active predniSONE (DELTASONE) 1 mg tabletIndication s:Rheumatoid arthritis of multiple sites with negative rheumatoid factor (HCC) Take 4 tablets (4 mg) by mouth daily 120 tablet 3 025 Active Rinvoq 15 mg extended release tabletIndication s:Rheumatoid arthritis, involving unspecified site, unspecified whether rheumatoid factor present (HCC) TAKE 1 TABLET DAILY 90 tablet 1 025 Active atorvastatin (LIPITOR) 20 mg tablet 0 Refill(s), Type: Maintenance 025 Active predniSONE (DELTASONE) 10 mg tabletIndication s:Rheumatoid arthritis, involving unspecified site, unspecified whether rheumatoid factor present (HCC) Take 2 tablets (20 mg) by mouth daily for 7 days, THEN 1 tablet (10 mg) daily for 7 days. 21 tablet 025 2024 Active methotrexate, PF, (Rasuvo, PF,) 25 mg/0.5 mL auto-injectorInd ications:Rheumat oid Arthritis Inject 25 mg under the skin every 7 days 12 mL 1 025 Active methotrexate, PF, (Otrexup, PF,) 25 mg/0.4 mL subcutaneous injectionIndicat ions:autoimmune disease Inject 0.4 mL (25 mg total) under the skin every 7 days 4.8 mL 3 025 2024 Discontinued(A lternate therapy) predniSONE (DELTASONE) 5 mg tablet Take 1 tablet (5 mg) by mouth daily 30 tablet 025 2024 Discontinued methotrexate, PF, (Rasuvo, PF,) 25 mg/0.5 mL auto-injectorInd ications:Rheumat oid Arthritis Inject 25 mg under the skin every 7 days 12 mL 1 025 2024 Discontinued Active Problems Problem Noted Date Diagnosed Date Mammogram abnormal 09/02/2021 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 Overview (01/15/2017): NONTOX UNINODULAR GOITER Hypothyroidism 02/25/2014 Overview (01/16/2017): HYPOTHYROIDISM NOS Encounters Date Type Department Care Team Description 07/03/2025 Telephone [facility] [address] [place] [address] Ronda Melendez RPh 06/30/2025 Telephone [facility] [address] [place] [address] Charito Thomas MD Prior Auth (Rasuvo) 06/30/2025 Telephone [facility] [address] [place] [address] Charito Thomas MD 05/10/2025 11:40 AM CDT Lab [facility] [address] [place] [address] Rheumatoid arthritis, involving unspecified site, unspecified whether rheumatoid factor present (HCC); Encounter for long-term (current) use of high-risk medication 05/10/2025 10:00 AM CDT Office Visit [facility] [address] [place] [address] Charito Thomas MD Rheumatoid arthritis, involving unspecified site, unspecified whether rheumatoid factor present (HCC) (Primary Dx); Encounter for long-term (current) use of high-risk medication from Last 3 Months Surgical History Surgery Date Site/Laterality Comments TONSILLECTOMY Tonsillectomy SECTION section DILATION AND CURETTAGE, DIAG NOSTIC / THERAPEUTIC SECTION TONSILLECTOMY BREAST BIOPSY 09/03/2021 Right Medical History Medical History Date Comments Disorder of thyroid Thyroid dise ase Headache Overweight Rheumatoid aortitis Migraines Hypertension Autoimmune disease rheumatoid arthritis Menstrual problem had a uterine ablation Family History Medical History Relation Name Comments Diabetes Father Eamon Hypertension Father Eamon Other Father Eamon Cancer -papilla ry cancer thyro; Thyroid cancer Father Eamon Alzheimer's disease Maternal Grandfather Iam Lymphoma Maternal Grandmother Other Other Family history of Cancer -thyroid; Relation Name Status Comments Father Eamon Maternal Grandfather Iam Maternal Grandmother Other Social History Tobacco Use Types Packs/Day Years Used Date Smoking Tobacco: Never Tobacco Cessation:Counseling Given: Not Answered Alcohol Use Standard Drinks/Week Comments No 0 (1 standard drink = 0.6 oz pur e alcohol) AUDIT-C Answer Date Recorded Q1: How often do you have a drink containing alc ohol? Monthly or less 08/26/2021 Q2: How many drinks containi ng alcohol do you have on a typical day when you are drinking? 1 or 2 08/26/2021 Q3: How often do you have si x or more drinks on one occasion? Less than monthly 08/26/2021 Comments Unknown Sex and Gender Information Value Date Recorded Sex Assigned at Not on file Legal Sex Female 1:29 AM LOGISTICS INTERN Gender Identity Female 04/15/2022 9:50 AM CDT Sexual Orientation Straight 04/15/2022 9: 50 AM CDT Obstetrics History Last Filed Vital Signs Vital Sign Reading Time Taken Comments Blood Pressure 129/84 05/10/2025 10:11 AM CDT Pulse 91 05/10/2025 10:11 AM CDT Temperature 36.8 C (98.2 F) 05/10/2025 10:11 AM CDT Respiratory Rate 24 11/10/2024 4:48 PM LOGISTICS INTERN Oxygen Saturation 97% 11/10/2024 4:48 PM LOGISTICS INTERN Inhaled Oxygen Concentration - - Weight 116.5 kg (256 lb 12.8 oz) 2024 10:11 AM CDT Height 167.6 cm (5' 6) 05/10/2025 10:1 1 AM CDT Body Mass Index 41.45 05/10/2025 10:11 AM CDT Plan of Treatment Health Maintenance Due Date Last Done Comments Breast Cancer Screening-Mammogram 1972 Cervical Cancer Screening 1972 Colon Cancer Screening-Colonoscopy 1972 Depression Screening 1972 DTaP/Tdap/Td Vaccine (1 - Tdap) 1983 Regular Well Visit/Exam 18-64 1990 Pneumococcal vaccine <65 (1 of 2 - PCV) 1991 Zoster Vaccine (2 of 2) 08/17/2020 06/22/2020 Covid-19 Vaccine (4 - 2024-2 6 season) 2025 05/30/2021, 01/09/2021, 12/12/2020 Influenza Vaccine (#1) 2025 , 07/31/2017, 07/16/2016, Additional history exists Hepatitis B Screening Completed 08/06/2022 Hepatitis C Screening Completed 08/06/2022 Procedures Procedure Name Priority Date/Time Associated Diagnosis Comments CBC WITH AUTO DIFFERENTIAL Routine 05/10/2025 11:38 AM CDT Rheumatoid arthritis, involving unspecified site, unspecified whether rheumatoid factor present (HCC) Encounter for long-term (current) use of high-risk medication COMPREHENSIVE METABOLIC PANEL Routine 05/10/2025 11:38 AM CDT Rheumatoid arthritis, involving unspecified site, unspecified whether rheumatoid factor present (HCC) Encounter for long-term (current) use of high-risk medication HEPATITIS C ANTIBODY Routine 08/06/2022 1:39 PM CDT Rheumatoid arthritis, involving unspecified site, unspecified whether rheumatoid factor present (HCC) from Last 3 Months or Most Recently Relevant to Health Maintenance Results * (ABNORMAL) CBC with auto differential (05/10/2025 11:38 AM CDT) White Blood Count 11.1 3.6 - 11.2 K/uL [facility] RBC 3.91 3.63 - 4.92 M/uL [facility] Hemoglobin 12.7 11.9 - 15.5 g/dL [facility] Hematocrit 38.5 36.1 - 44.3 % [facility] MCV 98.3(H) 80.0 - 97.6 fL [facility] MCH 32.4 26.7 - 33.7 pg [facility] MCHC 32.9 32.7 - 35.5 g/dL [facility] RBC Dist Width 15.0 12.3 - 17.0 % [facility] Platelet Count 274 140 - 440 K/uL [facility] MPV 7.9 6.8 - 10.4 fL [facility] Neutrophils % 73.0 38.7 - 74.5 % [facility] Lymphocyte % 15.4(L) 20.0 - 54.3 % [facility] Monocytes % 10.9 4.3 - 13.5 % [facility] Eosinophils % 0.3 0.0 - 6.0 % [facility] Basophil % 0.4 0.0 - 3.0 % [facility] Absolute Neutrophil 8.1(H) 1.8 - 6.6 K/uL [facility] Absolute Lymphocyte 1.7 0.8 - 3.3 K/uL [facility] Absolute Monocyte 1.2 0.2 - 1.2 K/uL [facility] Absolute Eosinophil 0.0 0.0 - 0.5 K/uL [facility] Absolute Basophil 0.0 0.0 - 0.2 K/uL [facility] Nucleated RBC % 0.0 0.0 - 0.4 /100 WBC [facility] Blood 05/10/2025 11:3 8 AM CDT 05/10/2025 12:49 PM CDT us Charito Thomas MD LAB BLOOD ORDERABLES Final Result [facility] * (ABNORMAL) Comprehensive metabolic panel (05/10/2025 11:38 AM CDT) Total Protein 7.4 6.1 - 8.4 g/dL [facility] Albumin 4.5 3.5 - 5.2 g/dL [facility] Calcium 9.8 8.6 - 10.3 mg/dL [facility] BUN 17 7 - 23 mg/dL [facility] Total Bilirubin 0.34 0.20 - 1.40 mg/dL [facility] Alk Phos, Total 59 35 - 129 IU/L [facility] AST (SGOT) 17 11 - 47 IU/L [facility] ALT (SGPT) 26 6 - 53 IU/L [facility] Creatinine 0.82 0.60 - 1.10 mg/dL [facility] Sodium 139 135 - 145 mmol/L [facility] Potassium 3.9 3.3 - 5.1 mmol/L [facility] Chloride 101 95 - 107 mmol/L [facility] CO2 Content 28 21 - 29 mmol/L [facility] Glucose 104(H) 64 - 99 mg/dL [facility] Comment: NONFASTING GLUCOSE RANGE = 64-199 mg/dL FASTING GLUCOSE 64 - 99 = NORMAL FASTING GLUCOSE 100 - 125 = IMPAIRED FASTING GLUCOSE FASTING GLUCOSE >=126 = PROVISIONAL DIAGNOSIS OF DIABETES eGFR 86.0 >60.0 mL/min/1.7 3 m2 [facility] Blood 05/10/2025 11:3 8 AM CDT 05/10/2025 12:49 PM CDT hCarito Thomas MD LAB BLOOD ORDERABLES Final Result [facility] * Hepatitis C antibody (08/06/2022 1:39 PM CDT) Hep C Ab Nonreactive Nonreactive [facility] Comment:Antibodies to HCV no t detected. Does NOT exclude the possibility of recent exposure to HCV. Current interpretive data was last revised on 22 Blood 08/06/2022 1:39 PM CDT 08/06/2022 1:58 PM CDT Pat Stewart MD LAB MICROBIOLOGY - GENERAL ORDERABLES Final Result [facility] Department [place] [address] from Last 3 Months or Most Recently Relevant to Health Maintenance [place] Care Teams Manager Radio Relationship Specialty Start Date End Date José Miguel Salas MD PCP - General Family Medicine 08/26/21
--- OUTSIDE RECORDS SUMMARY | 2025-07-10 09:15 | XMS_ITS | Clinical Summary ---
Author Organization [facility] Address [address] 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 This disclosure is being madepursuant to the Care Everywhere program and may not contain all information available regarding this patient. Last updated 18.[facility] Allergies Active Allergy Reactions Criticality Noted Date Comments Aspirin Rash Medium 05/25/2019 Penicillins Rash Medium 05/25/2019 Sulfa Drugs Rash Medium 05/25/2019 Medications * Be aware that medications may not be up to date on this document. Alwaysverify current medications with the patient. LEVOTHYROXINE SODIUM PO Active lisinopril (PRINIVIL; ZESTRIL) 10 MG tablet lisinopril 10 mg tablet Active FLUOXETINE HCL PO Active Probiotic Product (PROBIOTIC PO) Activ e Multiple Vitamins-Minera ls (MULTIVITAMIN ADULTS PO) Active NAPROXEN DR PO Activ e methotrexate 2.5 MG tablet Take 2.5 mg by mouth every Thursday, Thursday & Thursday Active folic acid 0.2 MG TABS Take 0.2 mg by mouth once daily Active OMEPRAZOLE PO Active Social History Tobacco Use Types Packs/Day Years Used Date Smoking Tobacco: Never Smokeless Tobacco: Never Comments No Sex and Gender Information Value Date Recorded Sex Assigned at Not on file Legal Sex Female 2:01 PM CDT Gender Identity Not on file Sexual Orientation Not on file Last Filed Vital Signs Vital Sign Reading Time Taken Comments Blood Pressure 124/80 11/02/2019 11:05 AM HOME IMPROVEMENT ADVISOR Pulse 73 11/02/2019 11:05 AM HOME IMPROVEMENT ADVISOR Temperature 36.8 C (98.3 F) 11/02/2019 11:05 AM HOME IMPROVEMENT ADVISOR Respiratory Rate 16 11/02/2019 11:05 AM HOME IMPROVEMENT ADVISOR Oxygen Saturation 98% 11/02/2019 11:05 AM HOME IMPROVEMENT ADVISOR Inhaled Oxygen Concentration - - Weight 105.2 kg (232 lb) 11/02/2019 11:05 AM HOME IMPROVEMENT ADVISOR Height 167.6 cm (5' 6) 11/02/2019 11:05 AM HOME IMPROVEMENT ADVISOR Body Mass Index 37.45 11/02/2019 11:05 AM HOME IMPROVEMENT ADVISOR Plan of Treatment Health Maintenance Due Date Last Done Comments COLOGUARD (AGES 45-75) - COL ON CA SCREENING 1972 COLON MONITORING 1972 COLONOSCOPY - COLON CA SCREENING 1972 CT COLONOGRAPHY - COLON CA SCREENING 1972 Colorectal Cancer Screening 1972 FIT - COLON CA SCREENING 1972 FLEX SIG - COLON CA SCREENING 1972 LIPID TESTING 1972 MAMMOGRAM 1972 HIV SCREENING 1987 HEPATITIS C SCREENING 11/23/1990 DTAP/TDAP/TD VACCINES (1 - Tdap) 1991 HEPATITIS B VACCINE (1 of 3 - 19+ 3-dose series) 1991 SCREENING FOR DIABETES 05/25/2019 PNEUMOCOCCAL VACCINE 50+ (1 of 1 - PCV) 2022 ZOSTER VACCINE (1 of 2) 2022 DEPRESSION SCREENING 10/12/2024 COVID-19 VACCINE (1 - 2023-2 5 season) 2025 INFLUENZA VACCINE (#1) 2025 HIB VACCINE Aged Out No longer eligi ble based on patient's age to complete this topic HPV VACCINE Aged Out No longer eligi ble based on patient's age to complete this topic MENINGOCOCCAL (Group B) VACC INE SHARED DECISION-MAKING Aged Out No longer eligibl e based on patient's age to complete this topic MENINGOCOCCAL GROUPS A/C/Y/W VACCINE Aged Out No longer eligible b ased on patient's age to complete this topic Insurance [facility] Care Teams Cross Cut Saw Operator Relationship Specialty Start Date End Date José Miguel Salas MD [address] [address] PCP - General 06/02/18
== END 2025-07-10 08:54 | disposition home or self-care (01) ==
PROVIDERS: PCP Family Medicine Adolescent Medicine; Visit Provider Obstetrics & Gynecology
DX: Z12.31 Encounter for screening mammogram for malignant neoplasm of breast (principal)
CPT/HCPCS: 77063; 77067